=== PATIENT | female | born 1995 | race African-American/Black ===

== ENCOUNTER 2020-10-13 07:27 | Emergency (ER) | payer OTHER ==
[2020-10-13 08:06] VITALS: BP 137/76; PULSE 83; TEMP 98.1; BMI 19.1
[2020-10-13 08:17] LABS: BASO % 0.3 % (0-2.0); EOS % 0.6 % (0-4.5); HEMOGLOBIN 13.6 GM/dL (10.7-15.3); LYMPH % 17.9 % (8-40); MCH 29.8 pg (25.7-33.7); MEAN CELL VOLUME 90.3 fl (80-96); MEAN PLT VOLUME 8.6 fl (7.5-11.1); MONO % 4.6 % (3.8-10.2); NEUT % 76.6 % (42.8-82.8); PLATELET COUNT 225 10^3/uL (134-434); RBC 4.54 M/mm3 (3.60-5.2); RDW 12.7 % (11.6-15.6); WHITE BLOOD COUNT 8.9 K/mm3 (4.0-10.0)
[2020-10-13 08:41] LABS: CALCIUM 8.9 mg/dL (8.5-10.1)
[2020-10-13 08:42] LABS: BLOOD UREA NITROGEN 4.9 mg/dL (7-18)
[2020-10-13 08:45] LABS: CREATININE 0.6 mg/dL (0.55-1.3)
[2020-10-13 09:26] LABS: EPI CELLS 5 /uL (0-25.1); HYALINE CASTS 0 /uL (0-3.1); URINE APPEARANCE CLEAR; URINE BACTERIA 141 /uL (0-1359); URINE BILIRUBIN NEGATIVE (NEGATIVE); URINE COLOR YELLOW; URINE GLUCOSE (UA) NEGATIVE (NEGATIVE); URINE KETONE NEGATIVE (NEGATIVE); URINE LEUK ESTERASE NEGATIVE (NEGATIVE); URINE NITRITE NEGATIVE (NEGATIVE); URINE PROTEIN NEGATIVE (NEGATIVE); URINE RBC 2 /uL (0-23.9); URINE UROBILINOGEN 0.2 mg/dL (0.2-1.0); URINE WBC 4 /uL (0-25.8)
== END 2020-10-13 09:23 | disposition home or self-care (01) ==
LOC: JER 07:27
DX: O20.8 Other hemorrhage in early pregnancy (principal)
CPT/HCPCS: 36415; 76817-TC; 80048; 81003; 84702; 85025; 86850; 86900; 86901; 87086; 99284-25

== ENCOUNTER 2021-01-15 19:54 | Emergency (ER) | payer OTHER ==
[2021-01-15 20:03] VITALS: BP 109/64; PULSE 77; TEMP 98.3; BMI 19.4
[2021-01-15 22:46] LABS: BASO % 0.3 % (0-2.0); EOS % 1.8 % (0-4.5); HEMATOCRIT 40.6 % (32.4-45.2); HEMOGLOBIN 13.7 GM/dL (10.7-15.3); LYMPH % 26.3 % (8-40); MCH 30.2 pg (25.7-33.7); MCHC 33.8 g/dl (32.0-36.0); MEAN CELL VOLUME 89.3 fl (80-96); MEAN PLT VOLUME 8.7 fl (7.5-11.1); MONO % 5.8 % (3.8-10.2); NEUT % 65.8 % (42.8-82.8); PLATELET COUNT 215 10^3/uL (134-434); RBC 4.54 M/mm3 (3.60-5.2); RDW 12.7 % (11.6-15.6); WHITE BLOOD COUNT 10.8 K/mm3 (4.0-10.0)
[2021-01-15 23:16] LABS: ALBUMIN 4.3 g/dl (3.4-5.0); BLOOD UREA NITROGEN 10.6 mg/dL (7-18); CALCIUM 9.1 mg/dL (8.5-10.1)
[2021-01-15 23:19] LABS: CREATININE 0.8 mg/dL (0.55-1.3)
[2021-01-15 23:21] LABS: BILIRUBIN,TOTAL 0.3 mg/dL (0.2-1)
[2021-01-15 23:47] LABS: EPI CELLS 12 /uL (0-25.1); HYALINE CASTS 5 /uL (0-3.1); URINE APPEARANCE CLOUDY; URINE BACTERIA 363 /uL (0-1359); URINE BILIRUBIN NEGATIVE (NEGATIVE); URINE COLOR YELLOW; URINE GLUCOSE (UA) NEGATIVE (NEGATIVE); URINE KETONE TRACE (NEGATIVE); URINE LEUK ESTERASE 2+ (NEGATIVE); URINE NITRITE NEGATIVE (NEGATIVE); URINE PROTEIN NEGATIVE (NEGATIVE); URINE RBC 44 /uL (0-23.9); URINE WBC 265 /uL (0-25.8)
[2021-01-16] MEDS ORDERED: MISOPROSTOL 200 MCG TABLET PO ONE (00:10)
[2021-01-16] MEDS ORDERED: AMOX TR/POT CLAV 875MG/125MG TABLETS (FP) PO ONE (00:12)
[2021-01-16] MEDS ORDERED: AMOX TR/POT CLAV 875MG/125MG TABLETS (FP) ONE (00:19)
== END 2021-01-16 00:34 | disposition home or self-care (01) ==
LOC: JER 19:54
DX: O03.4 Incomplete spontaneous abortion without complication (principal); N93.9 Abnormal uterine and vaginal bleeding, unspecified
CPT/HCPCS: 36415; 76830-TC; 80053; 81003; 84702; 85025; 99284-25

== ENCOUNTER 2021-08-07 15:54 | Emergency (ER) | payer OTHER ==
[2021-08-07 16:04] VITALS: BP 98/58; PULSE 93; TEMP 97.8
[2021-08-07 17:33] LABS: HEMATOCRIT 37.7 % (32.4-45.2); HEMOGLOBIN 12.8 GM/dL (10.7-15.3); MCH 30.6 pg (25.7-33.7); MCHC 33.9 g/dl (32.0-36.0); MEAN CELL VOLUME 90.3 fl (80-96); MEAN PLT VOLUME 8.6 fl (7.5-11.1); PLATELET COUNT 196 10^3/uL (134-434); RBC 4.17 M/mm3 (3.60-5.2); RDW 12.5 % (11.6-15.6); WHITE BLOOD COUNT 7.8 K/mm3 (4.0-10.0)
[2021-08-07 17:58] LABS: ALBUMIN 3.6 g/dl (3.4-5.0); BLOOD UREA NITROGEN 8.6 mg/dL (7-18)
[2021-08-07 18:00] LABS: CREATININE 0.7 mg/dL (0.55-1.3)
[2021-08-07 18:02] LABS: BILIRUBIN,TOTAL 0.2 mg/dL (0.2-1); TOT PROT 6.9 g/dl (6.4-8.2)
[2021-08-07] MEDS ORDERED: ACETAMINOPHEN 500 MG TABLET (FP) PO ONE (18:50)
[2021-08-07] MEDS ORDERED: ACETAMINOPHEN 500 MG TABLET (FP) ONE (18:51)
== END 2021-08-07 22:47 | disposition home or self-care (01) ==
LOC: JER 15:54
DX: O02.1 Missed abortion (principal); Z3A.08 8 weeks gestation of pregnancy
CPT/HCPCS: 36415; 76817-TC; 80053; 84702; 85027; 86850; 86900; 86901; 99284-25

== ENCOUNTER 2021-12-02 16:55 | Emergency (ER) | payer OTHER ==
[2021-12-02 17:29] VITALS: BP 119/74; PULSE 80; RESP 16; TEMP 98.6; BMI 20.3
[2021-12-02 19:13] LABS: HEMATOCRIT 39.1 % (32.4-45.2); HEMOGLOBIN 13.6 GM/dL (10.7-15.3); MCH 30.7 pg (25.7-33.7); MCHC 34.7 g/dl (32.0-36.0); MEAN CELL VOLUME 88.4 fl (80-96); MEAN PLT VOLUME 8.7 fl (7.5-11.1); PLATELET COUNT 214 10^3/uL (134-434); RBC 4.42 M/mm3 (3.60-5.2); RDW 12.5 % (11.6-15.6); WHITE BLOOD COUNT 10.2 K/mm3 (4.0-10.0)
[2021-12-02 19:27] LABS: BLOOD UREA NITROGEN 9.5 mg/dL (7-18); CALCIUM 9.1 mg/dL (8.5-10.1)
[2021-12-02 19:28] LABS: ALBUMIN 4.2 g/dl (3.4-5.0)
[2021-12-02 19:31] LABS: CREATININE 0.7 mg/dL (0.55-1.3)
[2021-12-02 19:32] LABS: BILIRUBIN,TOTAL 0.3 mg/dL (0.2-1); TOT PROT 7.7 g/dl (6.4-8.2)
[2021-12-02 19:59] LABS: EPI CELLS >36 /uL (0-25.1); HYALINE CASTS 0 /uL (0-3.1); URINE APPEARANCE CLEAR; URINE BACTERIA 726 /uL (0-1359); URINE BILIRUBIN NEGATIVE (NEGATIVE); URINE COLOR YELLOW; URINE GLUCOSE (UA) NEGATIVE (NEGATIVE); URINE KETONE NEGATIVE (NEGATIVE); URINE LEUK ESTERASE TRACE (NEGATIVE); URINE NITRITE NEGATIVE (NEGATIVE); URINE PROTEIN NEGATIVE (NEGATIVE); URINE RBC 18 /uL (0-23.9); URINE UROBILINOGEN 0.2 mg/dL (0.2-1.0); URINE WBC 13 /uL (0-25.8)
== END 2021-12-02 21:01 | disposition home or self-care (01) ==
LOC: JER 16:55
DX: D25.9 Leiomyoma of uterus, unspecified (principal); Z34.91 Encounter for supervision of normal pregnancy, unspecified, first trimester
CPT/HCPCS: 36415; 76801-TC; 80053; 81003; 84702; 84703; 85027; 87086; 99283-25

== ENCOUNTER 2022-03-04 16:12 | Inpatient (IN) | payer OTHER ==
[2022-03-04] MEDS ORDERED: OXYTOCIN 20 UNITS in 0.9% NS 20 UNIT/1,000 ML INFUS.BAG IV ONE (18:26)
[2022-03-04] MEDS ORDERED: BENZOCAINE 20% 57 GM BOTTLE TP PRN (18:45)
[2022-03-04] MEDS ORDERED: BISACODYL 10 MG SUPP.RECT RC PRN (18:45)
[2022-03-04] MEDS ORDERED: OXYTOCIN 20 UNITS in 0.9% NS 20 UNIT/1,000 ML INFUS.BAG IV SCH (18:45)
[2022-03-04] MEDS ORDERED: BENZOCAINE 28 GM HEMORRHOIDAL OINTMENT TP PRN (18:45)
[2022-03-04] MEDS ORDERED: oxyCODONE HCL 5 MG TABLET PO PRN (18:45)
[2022-03-04] MEDS ORDERED: WITCH HAZEL 50% (TUCKS) 40 PAD/JAR PAD TP PRN (18:45)
[2022-03-04 18:49] LABS: BASO % 0.1 % (0-2.0); HEMOGLOBIN 10.8 GM/dL (10.7-15.3); LYMPH % 6.8 % (8-40); MCH 30.2 pg (25.7-33.7); MCHC 33.9 g/dl (32.0-36.0); MEAN CELL VOLUME 89.2 fl (80-96); MEAN PLT VOLUME 9.4 fl (7.5-11.1); MONO % 8.5 % (3.8-10.2); NEUT % 84.6 % (42.8-82.8); PLATELET COUNT 130 10^3/uL (134-434); RBC 3.59 M/mm3 (3.60-5.2); RDW 12.2 % (11.6-15.6); WHITE BLOOD COUNT 7.4 K/mm3 (4.0-10.0)
[2022-03-04 18:55] LABS: INR 1.05 (0.83-1.09); PROTHROMBIN TIME (PATIENT) 12.1 SEC (9.7-13.0)
[2022-03-04 18:58] LABS: ACTIVATED PTT 28.7 SECONDS (25.2-36.5)
[2022-03-04 19:11] LABS: ALBUMIN 2.6 g/dl (3.4-5.0); BLOOD UREA NITROGEN 9.1 mg/dL (7-18); CALCIUM 8.1 mg/dL (8.5-10.1)
[2022-03-04 19:14] LABS: CREATININE 0.9 mg/dL (0.55-1.3)
[2022-03-04 19:16] LABS: BILIRUBIN,TOTAL 0.1 mg/dL (0.2-1); TOT PROT 5.8 g/dl (6.4-8.2)
[2022-03-04] MEDS ORDERED: IBUPROFEN 600 MG TABLET (FP) PO ONE (19:54)
[2022-03-04] MEDS: IBUPROFEN 600 MG TABLET (FP) PO PRN (19:58)
[2022-03-04 20:05] LABS: HIV INTERPRETATION NEGATIVE (NEGATIVE)
[2022-03-04] MEDS ORDERED: ACETAMINOPHEN 325 MG TABLET (FP) ONE (20:26)
[2022-03-04] MEDS: ACETAMINOPHEN 325 MG TABLET (FP) PO PRN (20:30)
[2022-03-04 20:51] LABS: COCAINE, UR NEGATIVE (NEGATIVE)
[2022-03-04 20:53] LABS: URINE BARBITURATES NEGATIVE (NEGATIVE)
[2022-03-04 20:57] LABS: METHADONE, UR NEGATIVE (NEGATIVE); OPIATES, URI NEGATIVE (NEGATIVE); PHENCYCLIDINE,URINE NEGATIVE (NEGATIVE); URINE AMPHETAMINES NEGATIVE (NEGATIVE); URINE BENZODIAZEPINES NEGATIVE (NEGATIVE)
[2022-03-04 21:22] LABS: EPI CELLS 0 /uL (0-25.1); HYALINE CASTS 0 /uL (0-3.1); PH,URINE 6.5 (5.0-8.0); URINE APPEARANCE CLEAR; URINE BACTERIA 338 /uL (0-1359); URINE BILIRUBIN NEGATIVE (NEGATIVE); URINE COLOR YELLOW; URINE GLUCOSE (UA) NEGATIVE (NEGATIVE); URINE KETONE TRACE (NEGATIVE); URINE LEUK ESTERASE TRACE (NEGATIVE); URINE NITRITE NEGATIVE (NEGATIVE); URINE PROTEIN 3+ (NEGATIVE); URINE RBC 466 /uL (0-23.9); URINE WBC 1 /uL (0-25.8)
[2022-03-04 21:31] VITALS: BMI 25.0
[2022-03-05] MEDS ORDERED: IBUPROFEN 600 MG TABLET (FP) PO ONE ×2 (01:24→12:36)
[2022-03-05] MEDS: IBUPROFEN 600 MG TABLET (FP) PO PRN ×2 (01:50→13:00)
[2022-03-05] MEDS ORDERED: ACETAMINOPHEN 325 MG TABLET (FP) ONE (02:05)
[2022-03-05] MEDS: ACETAMINOPHEN 325 MG TABLET (FP) PO PRN (02:06)
[2022-03-05 08:23] LABS: BASO % 0.4 % (0-2.0); EOS % 0.3 % (0-4.5); HEMATOCRIT 32.8 % (32.4-45.2); HEMOGLOBIN 10.9 GM/dL (10.7-15.3); LYMPH % 17.8 % (8-40); MCHC 33.1 g/dl (32.0-36.0); MEAN CELL VOLUME 90.7 fl (80-96); MEAN PLT VOLUME 9.4 fl (7.5-11.1); MONO % 12.7 % (3.8-10.2); NEUT % 68.8 % (42.8-82.8); PLATELET COUNT 109 10^3/uL (134-434); RBC 3.62 M/mm3 (3.60-5.2); RDW 12.2 % (11.6-15.6); WHITE BLOOD COUNT 4.1 K/mm3 (4.0-10.0)
[2022-03-05 09:37] VITALS: PULSE 66; RESP 18
[2022-03-05 10:05] VITALS: BP 114/80; TEMP 98
[2022-03-05] MEDS ORDERED: SENNOSIDES/DOCUSATE COMBO (SENNA PLUS) TABLET (UD) PO PRN (22:00)
[2022-03-07 03:07] LABS: FIBROSIS SCORE. 0.04 (0.00-0.21); HCV ALPHA 2 MACRO CHART 160 mg/dL (110-276); NECRO.INFLAM ACT.SCORE 0.06 (0.00-0.17); NECROINFLAM. ACTIVITY GRADE A0-No activity (.)
== END 2022-03-05 17:53 | disposition home or self-care (01) | DRG 560 ==
LOC: JER 16:12 → JLDR 16:13 → UNDOADMIN 16:13 → JLDR 18:05
PROVIDERS: ADMIT Obstetrics & Gynecology; ATTEND Obstetrics & Gynecology
PROC: 10E0XZZ Delivery of Products of Conception, External Approach (ICD-10-PCS; principal; 2022-03-04)
DX: O36.4XX0 Maternal care for intrauterine death, not applicable or unspecified (principal); Z3A.24 24 weeks gestation of pregnancy; Z37.1 Single stillbirth
CPT/HCPCS: 36415; 59409; 80053; 80307; 81003; 82172; 82977; 83010; 83883; 84460; 85025; 85610; 85730; 86762; 86780; 86803; 86850; 86900; 86901; 87340; 87389; 99285-25; C9803-CS; U0003; U0005

== ENCOUNTER 2022-03-11 17:11 | Emergency (ER) | payer OTHER ==
[2022-03-11 17:36] VITALS: BP 164/102; PULSE 56; RESP 18; TEMP 98.3; BMI 25.0
[2022-03-11] MEDS ORDERED: ACETAMINOPHEN 500 MG TABLET (FP) PO ONE (18:55)
[2022-03-11] MEDS ORDERED: KETOROLAC TROMETHAMINE 30 MG/1 ML VIAL IVPUSH ONE (18:55)
[2022-03-11] MEDS ORDERED: KETOROLAC TROMETHAMINE 30 MG/1 ML VIAL ONE (19:33)
[2022-03-11] MEDS ORDERED: ACETAMINOPHEN INJECTION 100 ML IVPB ONE (19:33)
[2022-03-11 20:05] LABS: BASO % 0.3 % (0-2.0); HEMATOCRIT 40.3 % (32.4-45.2); HEMOGLOBIN 13.3 GM/dL (10.7-15.3); LYMPH % 23.9 % (8-40); MCH 29.4 pg (25.7-33.7); MEAN CELL VOLUME 89.1 fl (80-96); MONO % 5.5 % (3.8-10.2); NEUT % 69.3 % (42.8-82.8); PLATELET COUNT 281 10^3/uL (134-434); RBC 4.52 M/mm3 (3.60-5.2); RDW 12.6 % (11.6-15.6); WHITE BLOOD COUNT 7.6 K/mm3 (4.0-10.0)
[2022-03-11 20:13] LABS: INR 1.08 (0.83-1.09); PROTHROMBIN TIME (PATIENT) 12.4 SEC (9.7-13.0)
[2022-03-11 20:21] LABS: BLOOD UREA NITROGEN 7.4 mg/dL (7-18)
[2022-03-11 20:24] LABS: CREATININE 0.8 mg/dL (0.55-1.3)
[2022-03-11 20:25] LABS: TOT PROT 7.2 g/dl (6.4-8.2)
[2022-03-11 20:26] LABS: BILIRUBIN,TOTAL 0.2 mg/dL (0.2-1)
[2022-03-11 21:06] LABS: ALBUMIN 3.3 g/dl (3.4-5.0); CALCIUM 9.4 mg/dL (8.5-10.1)
[2022-03-11 21:45] LABS: EPI CELLS 17 /uL (0-25.1); HYALINE CASTS 4 /uL (0-3.1); PH,URINE 6.5 (5.0-8.0); URINE APPEARANCE CLEAR; URINE BACTERIA 72 /uL (0-1359); URINE BILIRUBIN NEGATIVE (NEGATIVE); URINE COLOR YELLOW; URINE GLUCOSE (UA) NEGATIVE (NEGATIVE); URINE KETONE TRACE (NEGATIVE); URINE LEUK ESTERASE TRACE (NEGATIVE); URINE NITRITE NEGATIVE (NEGATIVE); URINE PROTEIN 1+ (NEGATIVE); URINE RBC 13 /uL (0-23.9); URINE WBC 28 /uL (0-25.8)
== END 2022-03-11 23:57 | disposition home or self-care (01) ==
LOC: JER 17:11
PROC: 3E0333Z Introduction of Anti-inflammatory into Peripheral Vein, Percutaneous Approach (ICD-10-PCS; principal; 2022-03-11)
DX: M54.50 Low back pain, unspecified (principal); N93.9 Abnormal uterine and vaginal bleeding, unspecified; J09.X2 Influenza due to identified novel influenza A virus with other respiratory manifestations
CPT/HCPCS: 0241U-QW; 36415; 76856-TC; 80053; 81003; 84702; 85025; 85610; 87086; 99284-25